=== PATIENT | female | born 1945 | race African-American/Black ===

== ENCOUNTER 2016-07-22 09:46 | Outpatient (CLI) | payer MEDICARE ==
[~2016-07-22] VITALS: Ht 167.6 cm; Wt 82.7 kg
--- NOTE | ~2016-07-22 | HEMODYNAMI ---
PATIENT:FOX CAMPA MEDICAL RECORD: [id number] : 43 LOCATION:DCarlyCAT ADMISSION DATE: 07/22/16 Generatedon:07/22/201614:25 Patient name: FOX CAMPA Patient #: [id number] SSN: : 1945 Date of study: 07/22/2016 Page: Of Hemodynamic Procedure Report Patient Data Patient Demographics Procedure consent was obtained First Name: FOX Gender: Female Last Name: KATHERYN : 1945 Middle Initial: C Age: 70 year(s) Patient #: [id number] Race: Black Additional ID: [id number] Contact details Address: [address] [place] [address] State: [place] City: [place] Zip code: [address] Past Medical History Allergies Allergen Reaction Date Comments Reported Other allergy 05/26/2014 PCN, Sulfa, Flagyl, Calan, Percodan, Stadol, Compazine, EES, Zithromax, Vantin, Cephalexin, Cefaclor, Zebeta, Valium, Medrol, Imitrex Admission Admission Data Admission Date: 07/22/2016 Admission Time: 9:46 Lab Results Lab Result Date: 07/22/2016 Lab Result Time: 0:00 Biochemistry Name Units Result Min Max BUN mg/dl 19 --(----)*- 7 18 Creatinine mg/dl 0.9 --(-*--)-- 0.6 1.3 CBC Name Units Result Min Max Hemoglobin g/dl 10.4 *-(----)-- 13.5 17.5 Procedure Procedure Types Cath Procedure Diagnostic Procedure [facility] w/Coronaries PCI Procedure Coronary Stent Initial Miscellaneous Procedures Moderate Sedation up to 30 minutes Procedure Description Procedure Date Procedure Date: 07/22/2016 Procedure Start Time: 14:08 Procedure End Time: 14:23 Procedure Staff Name Function Bentley Sun MD Performing Physician Chelly Saavedra RT Scrub Allen Baker RN Nurse Tj Pedro RT Hand Rug Cleaner Cristina Marks RT Monitor Procedure Data Cath Procedure Fluoroscopy Diagnostic fluoroscopy Total fluoroscopy Time: 3.2 time: 3.2 min min Diagnostic fluoroscopy Total fluoroscopy dose: dose: 237.81 mGy 237.81 mGy Contrast Material Contrast Material Type Amount (ml) Isovue 370 100 Entry Location Entry Primary Successful Side Size Upsize Upsize Entry Closure Chung ccessful Closure Location (Fr) 1 (Fr) 2 (Fr) Remarks Device Remarks Radial Right 5 Fr Mechanical artery Compression Estimated blood loss: 5 ml Diagnostic catheters Device Type Used For End Catheter Placement Terumo 5Fr Denton 110cm Multi-vessel catheter Angiography Procedure Complications No complications Procedure Medications Medication Administration Route Dosage Oxygen NC 2 l/min Heparin Flush Bag added to field 2 bags (1000units/500ml NS) 0.9% NaCl I.V. 100 ml/hr Benadryl I.V. 50 mg Radial Cocktail added to field 1 syringe (Verapomil 2mg/Nitro 400mcg/Heparin 1500units) Fentanyl I.V. 50 mcg Versed I.V. 1 mg Fentanyl I.V. 50 mcg Versed I.V. 1 mg Radial Cocktail added to field 1 syringe (Verapomil 2mg/Nitro 400mcg/Heparin 1500units) Heparin Bolus I.V. 4000 units Nitroglycerin IC/IA I.C. 150 mcg Hemodynamics Rest HGB: 10.4 (g/dl) Heart Rate: 79 (bpm) Pressure Samples Time Site Value (mmHg) Purpose Heart Use Rate(bpm) 14:11 LV 75/18,17 Snapshot 78 Snapshots Pre Cath Intra NCS Post Cath Vital Signs Time Heart Resp SPO2 NIBP (mmHg) Rhythm Pain Sedation Rate (ipm) (%) Status Level (bpm) 13:57:03 76 19 100 167/83(136) NSR 0 (11) 10(A) , No pain 14:01:21 70 18 97 127/62(88) NSR 0 (11) 10(A) , No pain 14:05:35 69 17 96 113/61(79) NSR 0 (11) 10(A) , No pain 14:09:49 69 16 95 109/61(77) NSR 0 (11) 10(A) , No pain 14:13:57 72 17 91 92/54(66) NSR 0 (11) 10(A) , No pain 14:18:05 75 17 94 106/56(72) NSR 0 (11) 10(A) , No pain 14:22:15 74 16 92 101/63(83) NSR 0 (11) 10(A) , No pain Medications Time Medication Route Dose Verified Delivered Reason Note s Effectiveness by by 13:56:31 Oxygen NC 2 l/min Allen Villa Per physician Samuel Baker RN RN 13:56:39 Heparin Flush added 2 bags Allen Allen used for Bag to Samuel Baker sugar cane planting equipment operator (1000units/500ml field RN NS) 13:56:55 0.9% NaCl I.V. 100 Allen Allen Per physician ml/hr Samuel Baker RN RN 13:57:03 Benadryl I.V. 50 mg Allen Villa Per physician Samuel Baker RN RN 13:57:11 Radial Cocktail added 1 Allen Allen used for (Verapomil to syringe Samuel Baker RN procedure 2mg/Nitro field RN 400mcg/Heparin 1500units) 14:04:06 Fentanyl I.V. 50 mcg Allen Allen for sedation Samuel Bkaer RN RN 14:04:13 Versed I.V. 1 mg Allen Allen for sedation Samuel Baker RN RN 14:09:44 Fentanyl I.V. 50 mcg Allen Allen for sedation Samuel Baker RN RN 14:09:48 Versed I.V. 1 mg Allen Allen for sedation Samuel Baker RN RN 14:09:52 Radial Cocktail added 1 Allen Allen used for (Verapomil to syringe Samuel Baker sugar cane planting equipment operator 2mg/Nitro field RN 400mcg/Heparin 1500units) 14:16:55 Heparin Bolus I.V. 4000 Allen Allen for units Samuel Baker RN anticoagulation RN 14:20:15 Nitroglycerin I.C. 150 mcg Allen Montanorey for IC/IA Samuel Sun MD vasodilation rail engineer Log Time Note 13:00:05 Tj Pedro RT(R) sent for patient. Start room use. 13:44:43 Diagnostic Cath Status : Elective 13:45:13 Time tracking: Regular hours 13:45:17 Plan of Care:Hemodynamics will remain stable., Cardiac rhythm will remain stable., Comfort level will be maintained., Respiratory function will remain adequate., Patient/ family verbilizes understanding of procedure., Procedure tolerated without complication., Recovers from procedure without complications.. 13:45:22 Patient received from Outpatients to [facility] Alert and oriented. Tansferred to table in Supine position. 13:45:23 Warm blankets applied, and alvina hugger turned on for patient comfort. 13:45:23 Correct patient and procedure confirmed by team. 13:45:25 Signed procedure consent form obtained from patient. 13:45:26 ECG and BP/O2 sat monitors applied to patient. 13:55:43 Vital chart was started 13:56:10 Baseline sample Acquired. 13:56:16 Rhythm: sinus rhythm 13:56:18 Full Disclosure recording started 13:56:31 Oxygen 2 l/min NC was given by Allen Baker RN; Per physician; 13:56:32 H&P Date Dictated: 07/20/2016 Within 30 days and on chart., H&P Addendum completed by physician on day of procedure. (MUST COMPLETE FOR ALL OUTPATIENTS). 13:56:33 Pre-procedure instructions explained to patient. 13:56:34 Pre-op teaching completed and patient verbalized understanding. 13:56:35 Family in waiting room. 13:56:37 Patient NPO since Midnight. 13:56:39 Heparin Flush Bag (1000units/500ml NS) 2 bags added to field was given by Allen Baker RN; used for procedure; 13:56:43 Is the patient allergic to Iodine/contrast media? No. 13:56:44 Was the patient premedicated? No 13:56:47 Is patient on blood thinner?Yes 13:56:51 ACC The patient was administered the following blood thiners within the last 24 hours: ACCPlavix 13:56:55 0.9% NaCl 100 ml/hr I.V. was given by Allen Baker RN; Per physician; 13:56:57 Patient diabetic? No. 13:56:59 Previous problem with sedation/anesthesia? No ? 13:57:02 Snore? Yes 13:57:03 Benadryl 50 mg I.V. was given by Allen Baker RN; Per physician; 13:57:04 Sleep apnea? No 13:57:05 Deviated septum? No 13:57:05 Opens mouth fully? Yes 13:57:06 Sticks out tongue? Yes 13:57:11 Radial Cocktail (Verapomil 2mg/Nitro 400mcg/Heparin 1500units) 1 syringe added to field was given by Allen Baker RN; used for procedure; 13:57:11 Airway obstruction? Yes asthma 13:57:15 Dentures? Yes in tight 13:57:18 Pre procedure: right dorsailis pedis pulse 1+ Palpable, but thready & weak; easily obliterated 13:57:20 Patient pain scale 0/10 ?. 13:57:27 IV patent on arrival in left forearm with 0.9% NaCl at [facility]. 14:01:00 Lab Result : BUN 19 mg/dl 14:01:00 Lab Result : Creatinine 0.9 mg/dl 14:01:00 Lab Result : Hemoglobin 10.4 g/dl 14:01:04 Lab results completed and on chart. 14:01:17 Right Radial & Right Groin area was prepped with chlora-prep and draped in sterile fashion 14:01:19 Alarms reviewed by R. N. 14:01:19 Sharps counted by scrub and verified by R.N. 14:02:59 Physician arrived 14:02:59 --------ALL STOP TIME OUT------ 14:02:59 Final Timeout: patient, procedure, and site verified with staff and physician. All members of the team are in agreement. 14:03:01 Right Radial & Right Groin site verified by team. 14:03:04 Physical assessment completed. ASA score P 2 - A patient with mild systemic disease as per Bentley Sun MD. 14:03:08 Sedation plan: IV Moderate Sedation Versed, Fentanyl 14:03:11 Use device set Radial Dx 14:03:12 Acist Syringe opened to sterile field. 14:03:12 Medline Cath Pack opened to sterile field. 14:03:13 Bag Decanter opened to sterile field. 14:03:13 Terumo 6Fr Slender Glidesheath opened to sterile field. 14:03:14 St Guillermo 260cm J .035 wire opened to sterile field. 14:03:14 Acist Hand Control opened to sterile field. 14:03:15 Acist Manifold opened to sterile field. 14:03:15 Tegaderm 4 x 4 opened to sterile field. 14:04:06 Fentanyl 50 mcg I.V. was given by Allen Baker RN; for sedation; 14:04:13 Versed 1 mg I.V. was given by Allen Baker RN; for sedation; 14:07:23 Zero performed for pressure channel P1 14:08:30 Procedure started. 14:08:34 Local anesthetic to right radial artery with Lidocaine 2% by Bentley Sun MD.INITIAL ACCESS ONLY 14:08:54 A 5 Fr sheath was inserted into the Right Radial artery 14:09:44 Fentanyl 50 mcg I.V. was given by Allen Baker RN; for sedation; 14:09:48 Versed 1 mg I.V. was given by Allen Baker RN; for sedation; 14:09:52 Radial Cocktail (Verapomil 2mg/Nitro 400mcg/Heparin 1500units) 1 syringe added to field was given by Allen Baker RN; used for procedure; 14:10:48 A X BODY 5Fr Denton 110cm catheter was advanced over the wire and used for Multi-vessel Angiography. 14:12:00 LV hemodynamics recorded. 14:12:01 LV gram done using AGOSTO 14:12:23 LCA angiography performed. 14:12:33 Injector settings: Ml/sec: 3, Volume: 6, 14:13:36 RCA angiography performed. 14:13:40 Injector settings: Ml/sec: 3, Volume: 6, 14:15:05 Catheter removed. 14:15:06 Proceeding to intervention. 14:15:31 [employer] BasixCompak Inflation Kit opened to sterile field. 14:15:31 Lim Whisper J 300cm 0.014 guide wire opened to sterile field. 14:16:16 Medtronic Launcher 6Fr AR 1.0 guide catheter opened to sterile field. 14:16:29 6 Fr ar 1 guide catheter was inserted over the wire 14:16:55 Heparin Bolus 4000 units I.V. was given by Allen Baker RN; for anticoagulation; 14:17:03 whisper wire advanced. 14:17:05 Wire advanced across lesion. 14:18:34 Inflation Number: 1 A W5 Networkstronic Integrity 3.0 X 12 stent was prepped and advanced across the Mid RCA. The stent was deployed at 11 SWATHI for 0:10 (min:sec). 14:19:36 Terumo TR Band Standard opened to sterile field. 14:20:15 Nitroglycerin IC/IA 150 mcg I.C. was given by Bentley Sun MD; for vasodilation; 14:20:50 Stent catheter was removed intact over wire. 14:20:51 Wire removed. 14:20:51 Guide catheter removed. 14:21:15 Sheath removed intact; hemostasis achieved with Mechanical Compression to the Right Radial artery. 14:21:17 Procedure ended.(Physican Out) 14::58 Fluoroscopy time 03.20 minutes. 14:22:08 Flurop Dose total: 237.81 14:22: Fluoroscopy dose: 237.81 mGy 14:22: Contrast amount:Isovue 370 100ml. 14:22:29 Sharps counted by scrub and verified by R.N. 14:22:37 Insertion/operative site no bleeding no hematoma. 14:22:52 Post right radial artery:stable 14:22:54 Post Procedure Pulses reassessed and unchanged 14:22:57 Post procedure rhythm: unchanged. 14:23:00 Estimated blood loss: 5 ml 14:23:07 Post procedure instruction explained to patient.Patient verbalizes understanding. 14:23:08 Patient needs reinforcement of post procedure teaching. 14:23:25 Procedure type changed to Cath procedure, Diagnostic procedure, LHC, LHC w/Coronaries, PCI procedure, Coronary Stent Initial, Miscellaneous Procedures, Moderate Sedation up to 30 minutes 14:23:26 Procedure and supply charges have been captured, reviewed, submitted and are correct. 14:23:31 Procedure Complication : No complications 14:23:33 Vital chart was stopped 14:23:33 See physician's report for complete and final results. 14:23:37 Report given to Pre/Post Procedure Room. 14:23:40 Patient transfered to Pre/Post Procedure Room with Stretcher. 14:23:41 Procedure ended. 14:23:41 Full Disclosure recording stopped 14::51 ACC-PCI Only Patient was given prescriptions, or instructed by Bentley Sun MD to start/continue the following medications upon discharge: Plavix 14:23:52 End room use (Document Last) Intervention Summary Intervention Notes Time ActionType Lesion and Equipment Action# Pressure Duration Attributes Used 14:18:34 Place stent Mid RCA Medtronic 1 11 00:10 Integrity 3.0 X 12 stent Device Usage Item Name Manufacture Quantity Catalog Hospital Part Current Minimal Lot# / Number Charge Number Stock Stock Serial# Code Acist Acist 1 19998 157676 379273 313445 20 Syringe Medical Systems Inc Medline Cardinal 1 [id number] 40034 325626 5 Cath Pack Health Bag Microtek 1 2002S 754496 23708 641053 5 [employer]. Terumo 6Fr Terumo 1 [id number] 231530 546135 175256 [address] Guillermo 1 156108 528368 012807 283821 30 260cm J .035 wire Acist Hand Acist 1 03758 807592 302712 070362 5 Control Medical Systems Inc Acist Acist 1 04393 583981 010413 407145 5 Manifold Medical Systems Inc Tegaderm 4 3M 1 1626W 674511 606415 462781 5 x 4 Terumo 5Fr Terumo 1 405023 605462 817518 846703 5 Denton 110cm catheter Merit Merit 1 [id number] 961505 537152 773093 15 BasixCompak Medical Inflation Kit Lim Lim 1 [id number] 161408 238361 110891 5 Whisper J Vascular 300cm 0.014 guide wire Medtronic Medtronic 1 [id number] 717528 00277 850552 1 Launcher 6Fr AR 1.0 guide catheter Medtronic Medtronic 1 [id number] 725534 178051 765149 8 [id number] Integrity 3.0 X 12 stent Terumo TR Terumo 1 [id number] 909539 311017 777354 40 Band Standard Signature Audit [place] Stage Time Signature Unsigned Intra-Procedure 07/22/2016 Cristina Marks 2:25:07 PM RT(R) Signatures Monitor : Cristina Marks RT Signature : Date : Time : [facility] [address] [place] [address]
[~2016-07-22 09:46] MED LIST: BAYER CHEWABLE81 MG PO; DEPAKOTE250 MG PO; DILT-CD120 MG PO; IMDUR30 MG PO; KEFLEX500 MG PO; LEVOTHROID50 MCG PO; LEXAPRO20 MG PO; METOPROLOL TAR100 MG PO; NITROSTAT0.3 MG SL; NORCO 7.5-325 PO; NORCO 7.5-3251 EACH PO; NORCO 7.5/325 T1 TA1 PO; PEPTO-BISMOL262 M1 PO; PLAVIX75 MG PO; PRILOSEC20 MG PO; SYNTHROID75 MCG PO; ULTRAM50 MG PO; VITAMIN E1000 UNIT PO; ZOCOR40 MG PO; ZYRTEC-D T1 TAB.SR . PO
[2016-07-22 11:00] VITALS: BP 148/70; Ht 167.6 cm; Wt 82.7 kg
[2016-07-22 11:40] LABS: BASOPHILS 0.2 % (0.0-2.0); EOSINOPHILS 1.8 % (0-7); HEMATOCRIT 33.9 % (36.0-48.0); HEMOGLOBIN 10.4 g/dL (12-16); IMMATURE GRANULOCYTES 0.4 % (0-5); MCH 25.4 pg (26.0-34.0); MCHC 30.7 g/dL (31.0-37.0); MCV 82.9 fL (80.0-100.0); MEAN PLATELET VOLUME 11.4 fL (7.4-10.4); MONOCYTES 10.9 % (2-11); NEUTROPHILS 44.7 % (40-80); RBC 4.09 10x6/uL (4.00-5.40); RDW 18.1 % (11.5-14.5); WBC 5.6 10x3/uL (4.8-10.8)
[2016-07-22 11:41] LABS: PLATELET COUNT 233 10x3/uL (130-400)
[2016-07-22 11:50] LABS: INR 1.04 (0.85-1.17); PROTIME 13.4 SECONDS (11.6-15.0)
[2016-07-22 11:52] LABS: ANION GAP 11.3 mmol/L (8-16); CALCIUM 8.7 mg/dL (8.5-10.1); CARBON DIOXIDE 29.7 mmol/L (21.0-32.0); CREATININE - SERUM 0.9 mg/dL (0.6-1.3)
--- NOTE | 2016-07-22 14:45 | NUR ---
TR BAND TO R/WRIST CDI NO BLEEDING NO HEMATOMA NOTED. VSS WITH CHEST PAIN DENIED. WILL MONITOR
--- NOTE | 2016-07-22 15:48 | NUR ---
1530 VOIDED VIA BEDPAN, 200CC. ALL VITALS REMAIN WNL. R WRIST TR BAND C/D/I WITH NO HEMATOMA OR BLEEDING. DAUGHTER AT BEDSIDE.
--- NOTE | 2016-07-22 18:01 | NUR ---
1630 R WRIST TR BAND C/D/I WITH NO HEMATOMA OR BLEEDING, SITTING UP EATING SANDWICH TRAY WITH DAUGHTER AT BEDSIDE.
--- NOTE | 2016-07-22 18:23 | NUR ---
2CC AIR REMOVED FROM R WRIST TR BAND. PIV REMOVED FROM LEFT AC WITH BANDAID APPLIED. UP TO BEDSIDE TO DRESS WITH ASSIST FROM DAUGHTER.
--- NOTE | 2016-07-22 18:49 | NUR ---
TR BAND REMOVED AND TEGADERM APPLIED. AMBULATED TO BATHROOM TO VOID. D/C INSTRUCTIONS DISCUSSED WITH PATIENT AND DAUGHTER. WHEELED OUT VIA WHEELCHAIR BY CASER SHOE PARTS TEAM.
--- NOTE | 2016-07-24 18:07 | NUR ---
PT'S DAUGHTER CALLED WITH QUESTIONS CONCERNING PT HAVING CLUTCHING CHEST PAIN. INITIALLY INSTRUCTED PT TO "GO TO THE ER TO BE EVALUATED". SPOKE WITH WEAVING LOOM OPERATOR WHO STATED THIS NURSE SHOULD CALL PT BACK TO [facility] TO CALL 911 AND GO TO THE CLOSEST ER FOR EVALUATION NOT TO DRIVE TO [facility] ER. PT CHART ACCESSED FOR PT PHONE NUMBER. SPOKE WITH PT'S DAUGHTER AND CLAIRIFIED TO GO TO THE CLOSEST ER PT LIVES IN [place].
--- NOTE | 2016-07-29 08:46 | OP ---
PATIENT NAME: FOX CAMPA MEDICAL RECORD: [id number] :43 LOCATION:D.CAT ADMISSION DATE: SURGEON: RENEE SALINAS MD DATE OF OPERATION: 07/22/2016 PROCEDURES: 1. PTCA stent RCA. 2. Left heart catheterization. 3. Selective coronary angiography. 4. Left ventriculogram. INDICATION: Angina and coronary artery disease. PROCEDURE IN DETAIL: After informed consent was obtained and after a detailed explanation of risks, benefits as well as alternative therapies, the patient elected to proceed with angiogram and angioplasty. The right femoral area was prepped and draped in normal sterile fashion. The right femoral artery was cannulated via modified Seldinger technique with placement of 6-Egyptian sheath. All catheters exchanged through this sheath. FINDINGS: The left ventriculogram was performed in the standard 30-degree AGOSTO view, reveals good cardiac wall motion throughout all segments. Overall ejection fraction estimated at 60%. SELECTIVE CORONARY ANGIOGRAPHY: 1. Left main showed no significant angiographic disease. 2. Left anterior descending has previously placed stents; these are widely patent with no significant restenosis. No disease elsewise throughout the LAD or its branches. 3. Left circumflex shows moderate irregularities, but no flow-limiting stenosis. 4. The right coronary has a hazy 70+ percent stenosis in the mid vessel. PTCA STENT OF THE RCA: The stent used was 3.0 x 12 mm Integrity stent. Result was 0% residual stenosis. OVERALL IMPRESSION: Successful percutaneous transluminal coronary angioplasty stent of the right coronary artery going from 70% hazy stenosis to 0% residual. TRANSINT:[id number] Voice Confirmation ID: [id number] DOCUMENT ID: [id number] RENEE SALINAS MD at 0846 CC: [id number] DICTATION DATE: 07/22/16 1424 HAND FABRIC CUTTER: 07/22/162009 [facility] CLI 07/22/16 [place] [id number]
== END 2016-07-22 18:51 | disposition home or self-care (01) ==
LOC: D.CATH 09:46
PROVIDERS: Internal Medicine Interventional Cardiology
DX: I25.119 Atherosclerotic heart disease of native coronary artery with unspecified angina pectoris (principal)

== ENCOUNTER 2017-03-23 13:37 | Observation (INO) | payer MEDICARE ==
--- NOTE | ~2017-03-23 | HEMODYNAMI ---
PATIENT:FOX CAMPA MEDICAL RECORD: [id number] : 43 LOCATION:[facility] D.2118 ADMISSION DATE: 03/23/17 Generatedon:03/23/201716:13 Patient name: FOX CAMPA Patient #: [id number] SSN: : 1945 Date of study: 03/23/2017 Page: Of Hemodynamic Procedure Report Patient Data Patient Demographics Procedure consent was obtained First Name: FOX Gender: Female Last Name: KATHERYN : 1945 [facility] Initial: C Age: 71 year(s) Patient #: [id number] Race: Black Additional ID: [id number] Contact details [address]: [address] [place] [address] State: [place] City: [place] Zip code: [address] Past Medical History Allergies Allergen Reaction Date Comments Reported Other allergy 05/26/2014 PCN, Sulfa, Flagyl, Calan, Percodan, Stadol, Compazine, EES, Zithromax, Vantin, Cephalexin, Cefaclor, Zebeta, Valium, Medrol, Imitrex Admission Admission Data Admission Date: 03/23/2017 Admission Time: 13:37 Room #: .2118 Procedure Procedure Types Cath Procedure Diagnostic Procedure [facility] w/Coronaries Miscellaneous Procedures Moderate Sedation up to 15 minutes Procedure Description Procedure Date Procedure Date: 03/23/2017 Procedure Start Time: 16:01 Procedure End Time: 16:09 Procedure Staff Name Function Bentley Sun MD Performing Physician Tj Pedro RT Scrub Torsten Alba RN Nurse Chelly Saavedra RT Monitor Procedure Data Cath Procedure Fluoroscopy Diagnostic fluoroscopy Total fluoroscopy Time: 0.9 time: 0.9 min min Diagnostic fluoroscopy Total fluoroscopy dose: 327 dose: 327 mGy mGy Contrast Material Contrast Material Type Amount (ml) Isovue 300 46 Entry Location Entry Primary Successful Side Size Upsize Upsize Entry Closure Chung ccessful Closure Location (Fr) 1 (Fr) 2 (Fr) Remarks Device Remarks Radial Right 6 Fr Manual tr artery Short Compression Estimated blood loss: 10 ml Diagnostic catheters Device Type Used For End Catheter Placement Diagnostic Terumo 5Fr Procedure [employer] 110cm catheter Procedure Complications No complications Procedure Medications Medication Administration Route Dosage Oxygen NC 2 l/min Lidocaine 2% added to field 20 Heparin Flush Bag added to field 2 bags (1000units/500ml NS) 0.9% NaCl I.V. 100 ml/hr unlisted medication I.A. Versed I.V. 0.5 mg Fentanyl I.V. 25 mcg Versed I.V. 0.5 mg Fentanyl I.V. 25 mcg Hemodynamics Rest Heart Rate: 102 (bpm) Pressure Samples Time Site Value (mmHg) Purpose Heart Use Rate(bpm) 16:05 LV 115/0,6 Snapshot 73 16:05 AO 114/62(87) Pullback 68 16:05 LV 17/2,7 Pullback 68 Gradients Valve Time Site 1 Site 2 Mean SEP/DFP Peak To Heart Use (mmHg) (sec/min) Peak Rate (mmHg) (bpm) Aortic 16:05 LV AO 0 19 0 68 17/2,7 114/62(87) Calculations Valve P-P Mean Valve Index Valve Source Name Gradient Area Flow (cm2) Aortic 0 0 0 0 Snapshots Pre Cath Intra NCS Post Cath Vital Signs Time Heart Resp SPO2 etCO2 NIBP (mmHg) Rhythm Pain Sedation Rate (ipm) (%) (mmHg) Status Level (bpm) 15:54:05 76 17 95 0 160/66(114) NSR 0 (11) 10(A) , No pain 15:58:52 73 15 97 30.9 155/60(118) NSR 0 (11) 10(A) , No pain 16:03:36 71 18 97 38.4 150/62(106) NSR 0 (11) 9(A) , No pain 16:08:15 73 15 94 35.4 118/53(78) NSR 0 (11) 9(A) , No pain 16:11:21 73 16 96 33.1 121/51(79) NSR 0 (11) 10(A) , No pain Medications Time Medication Route Dose Verified Delivered Reason Notes Effectiveness by by 15:57:24 Oxygen NC 2 l/min Bentley Sarmiento used for Corinne Alba manager heart 15:57:32 Lidocaine 2% added 20ml vial Bentley Hagan for loca l to Corinne Sun MD anesthetic field 15:57:44 Heparin Flush added 2 bags Bentley Hagan used for Bag to Corinne Sun MD procedure (1000units/500ml field NS) 15:57:56 0.9% NaCl I.V. 100 ml/hr Bentley Sarmiento Per Corinne Alba RN physician 15:59:55 radial cocktail I.A. heparin 1500 Bentley Hagan for pt units,nitroglycerin Corinne Sun MD vasodilation allergic 400 mcg to verapamil 15:59:58 Versed I.V. 0.5 mg Bentley Sarmiento for sundar terry Alba RN 16:00:06 Fentanyl I.V. 25 mcg Bentley Rojasie for sundar terry Alba RN 16:05:54 Versed I.V. 0.5 mg Bentley Rojasie for sundar terry Alba RN 16:05:59 Fentanyl I.V. 25 mcg Bentley Rojasie for sundar terry Alba RN Procedure Log Time Note 15:19:49 Procedure type changed to Cath procedure, Diagnostic procedure, LHC, LHC w/Coronaries, Miscellaneous Procedures, Moderate Sedation up to 15 minutes 15:20:31 Diagnostic Cath status Elective 15:20:35 Chelly WILLIAMSON(R) sent for patient. Start room use. 15:20:37 Time tracking: Regular hours 15:20:47 Plan of Care:Hemodynamics will remain stable., Cardiac rhythm will remain stable., Comfort level will be maintained., Respiratory function will remain adequate., Patient/ family verbilizes understanding of procedure., Procedure tolerated without complication., Recovers from procedure without complications.. 15:46:49 Patient received from PCU to CCL 1 Alert and oriented. Tansferred to table in Supine position. 15:46:52 Warm blankets applied, and alvina hugger turned on for patient comfort. 15:46:53 Correct patient and procedure confirmed by team. 15:46:55 Signed procedure consent form obtained from patient. 15:46:56 ECG and BP/O2 sat monitors applied to patient. 15:49:35 Full Disclosure recording started 15:53:10 Vital chart was started 15:53:13 Baseline sample Acquired. 15:53:19 Rhythm: sinus rhythm 15:53:35 H&P Date Dictated: 03/23/2017 Within 30 days and on chart., H&P Addendum completed by physician on day of procedure. (MUST COMPLETE FOR ALL OUTPATIENTS). 15:53:37 Pre-procedure instructions explained to patient. 15:53:39 Pre-op teaching completed and patient verbalized understanding. 15:53:43 Family in waiting room. 15:53:44 Patient NPO since Midnight. 15:53:55 Is the patient allergic to Iodine/contrast media? No. 15:53:59 Is patient on blood thinner?Yes 15:54:05 ACC The patient was administered the following blood thiners within the last 24 hours: ACCAspirin, ACCPlavix 15:55:39 Patient diabetic? No. 15:55:46 Snore? Yes 15:55:55 Airway obstruction? Yes asthma 15:56:06 Patient pain scale 0/10 ?. 15:56:13 IV patent on arrival in left forearm with 0.9% NaCl at O. 15:56:22 Lab results completed and on chart, pending. 15:56:27 Right Radial & Right Groin area was prepped with chlora-prep and draped in sterile fashion 15:56:29 Alarms reviewed by Levi Lopez 15:56:31 Physician paged 15:56:32 Physician arrived 15:56:33 --------ALL STOP TIME OUT------ 15:56:34 Final Timeout: patient, procedure, and site verified with staff and physician. All members of the team are in agreement. 15:56:36 Right Radial & Right Groin site verified by team. 15:56:41 Sedation plan: IV Moderate Sedation Versed, Fentanyl 15:57:24 Oxygen 2 l/min NC was administered by Torsten Alba RN; used for procedure; 15:57:32 Lidocaine 2% 20ml vial added to field was administered by Bentley Sun MD; for local anesthetic; 15:57:44 Heparin Flush Bag (1000units/500ml NS) 2 bags added to field was administered by Bentley Sun MD; used for procedure; 15:57:56 0.9% NaCl 100 ml/hr I.V. was administered by Torsten Alba RN; Per physician; 15:58:39 Use device set Radial Dx 15:58:40 Acist Syringe opened to sterile field. 15:58:41 Medline Cath Pack opened to sterile field. 15:58:41 Bag Decanter opened to sterile field. 15:58:42 Terumo 6Fr Slender Glidesheath opened to sterile field. 15:58:42 St Guillermo 260cm J .035 wire opened to sterile field. 15:58:42 Acist Hand Control opened to sterile field. 15:58:43 Acist Manifold opened to sterile field. 15:58:43 Tegaderm 4 x 4 opened to sterile field. 15:58:44 MBrace Wrist Support opened to sterile field. 15:59:55 radial cocktail heparin 1500 units,nitroglycerin 400 mcg I.A. was administered by Bentley Sun MD; for vasodilation; pt allergic to verapamil 15:59:58 Versed 0.5 mg I.V. was administered by Torsten Alba RN; for sedation; 16:00:06 Fentanyl 25 mcg I.V. was administered by Torsten Alba RN; for sedation; 16:01:02 Procedure started. 16:01:13 Local anesthetic to right radial artery with Lidocaine 2% by Bentley Sun MD.INITIAL ACCESS ONLY 16:03:49 A 6 Fr Short sheath was inserted into the Right Radial artery 16:04:06 Zero performed for pressure channel P1 16:04:13 Zero performed for pressure channel P1 16:04:39 A Diagnostic Terumo 5Fr Fe [employer] 110cm catheter was advanced over the wire and used for Procedure. 16:04:54 LV angiography performed. 16:05:26 EF : 55 % 16:05:29 LCA angiography performed. 16:05:54 Versed 0.5 mg I.V. was administered by Torsten Alba RN; for sedation; 16:05:59 Fentanyl 25 mcg I.V. was administered by Torsten Alba RN; for sedation; 16:06:19 RCA angiography performed. 16:06:43 Catheter removed. 16:07:25 Terumo TR Band Standard opened to sterile field. 16:07:53 Sheath removed intact; hemostasis achieved with Manual Compression to the Right Radial artery. 16:07:56 Procedure ended.(Physican Out) 16:08:08 Fluoroscopy time 00.90 minutes. 16:08:13 Fluoroscopy dose: 327 mGy 16:08:13 Flurop Dose total: 327 16:08:16 Contrast amount:Isovue 300 46ml. 16:08:18 Sharps counted by scrub and verified by R.N. 16:08:20 TR band inflated with 10cc of air. 16:08:21 Insertion/operative site no bleeding no hematoma. 16:08:30 Post right radial artery:stable 16:08:33 Post Procedure Pulses reassessed and unchanged 16:08:37 Post procedure rhythm: unchanged. 16:08:40 Estimated blood loss: 10 ml 16:08:42 Post procedure instruction explained to patient.Patient verbalizes understanding. 16:08:47 Procedure and supply charges have been captured, reviewed, submitted and are correct. 16:08:54 Procedure Complication : No complications 16:08:59 Vital chart was stopped 16:09:00 See physician's report for complete and final results. 16:09:02 Report given to [facility]. 16:09:06 Patient transfered to [facility] with Bed. 16:09:09 Procedure ended. 16:09:09 Full Disclosure recording stopped 16:09:12 End room use (Document Last) Device Usage Item Name Manufacture Quantity Catalog Hospital Part Current Minimal Lot# / Number Charge Number Stock Stock Serial# Code Acist Acist 1 [id number] 617058 233968 [id number] 20 Syringe [employer] Medline Cardinal 1 [id number] 701061 06493 657184 5 Cath Pack Health Bag Microtek 1 2001S 341490 36856 335933 5 Resale [employer] Terumo 6Fr Terumo 1 [id number] 130453 607321 367759 [address] Guillermo 1 436253 792420 679964 059401 30 260cm J .035 wire Acist Hand Acist 1 00258 956476 406742 959299 5 Control Medical [employer] Inc Acist Acist 1 21183 756691 126424 823479 5 Manifold Medical [employer] Inc Tegaderm 4 3M 1 1626W 647889 382753 742972 5 x 4 MBrace Advanced 1 140-0250-00 550180 73172 314140 5 Wrist Vascular Support Dynamics Diagnostic Terumo 1 84-0793 330678 165663 002342 5 Terumo 5Fr Fe [employer] 110cm catheter Terumo TR Terumo 1 [id number] 622063 448266 646781 40 Band Standard Signature Audit Novelty Stage Time Signature Unsigned Intra-Procedure 03/23/2017 Chelly Saavedra 4:13:49 PM RT(R) Signatures Monitor : Chelly Saavedra Signature : RT Date : Time : [id number] [place] [address]
--- NOTE | 2017-03-23 13:43 | NUR ---
NEW ADMIT FROM JOS[facility]. TRANSFRED BY EMS. OREINTED TO ROOM. CALL LIGHT IN REACH. WILL CONT. PLAN OF CARE.
[2017-03-23 14:26] VITALS: BMI 29.1
--- NOTE | 2017-03-23 15:00 | NUR ---
TO SHOE SINGER PER BED
[2017-03-23 15:47] LABS: BASOPHILS 0.1 % (0-2); EOSINOPHILS 0.1 % (0-7); HEMATOCRIT 39.2 % (36.0-48.0); HEMOGLOBIN 12.3 g/dL (12-16); IMMATURE GRANULOCYTES 0.3 % (0-5); LYMPHOCYTES 20.3 % (15-50); MCH 28.3 pg (26.0-34.0); MCHC 31.4 g/dL (31.0-37.0); MCV 90.1 fL (80.0-100.0); MEAN PLATELET VOLUME 11.4 fL (7.4-10.4); MONOCYTES 9.4 % (2-11); NEUTROPHILS 69.8 % (40-80); RBC 4.35 10x6/uL (4.00-5.40); RDW 19.5 % (11.5-14.5); WBC 9.2 10x3/uL (4.8-10.8)
[2017-03-23 15:48] LABS: PLATELET COUNT 179 10x3/uL (130-400)
[2017-03-23 15:56] LABS: ANION GAP 14.6 mmol/L (8-16); CALCIUM 8.5 mg/dL (8.5-10.1); CARBON DIOXIDE 25.9 mmol/L (21.0-32.0); POTASSIUM - SERUM 3.5 mmol/L (3.5-5.1)
[2017-03-23 16:00] VITALS: BP 121/59
--- NOTE | 2017-03-23 16:08 | HP ---
PATIENT: FOX CAMPA MEDICAL RECORD: [id number] ACCOUNT: [id number] LOCATION:[address] : 43 ADMISSION DATE: 03/23/17 HISTORY AND PHYSICAL EXAMINATION DIAGNOSES: 1. Unstable angina. 2. Coronary artery disease. 3. Hypertension. 4. Hyperlipidemia. HISTORY OF PRESENT ILLNESS: Mrs. Campa presents to [facility] with increasing anginal chest discomfort just like that of her previous angina. Last cardiac intervention was July 2016. She is currently on metoprolol, simvastatin, Plavix, aspirin and Imdur. PHYSICAL EXAMINATION: GENERAL APPEARANCE: Well-nourished, well-developed, appears stated age. Level of distress, comfortable. PSYCHIATRIC: Mental status, alert, normal affect. Orientation, oriented to time, place and person. EYES: Lids and conjunctiva, noninjected. No discharge, no pallor. ENT: Lips, teeth, gums, normal dentition. Oropharynx, no cyanosis, no pallor. NECK: Carotid arteries, bilateral normal upstroke, no bruits, no thrills. JUGULAR VEINS: No jugular venous pressure or distention. CERVICAL LYMPH NODES: Nontender, nonenlarged. THYROID: Not enlarged. Nontender. No nodules. LUNGS: Respiratory effort, unlabored. CHEST: Normal curvature. No thoracic deformity. No chest wall tenderness. Percussion, resonant. Auscultation, clear. No wheezes, no rales, no rhonchi. CARDIOVASCULAR: Precordial exam, nondisplaced. No heaves or pericardial thrills. Rate and rhythm, regular. Heart sounds, normal S1, normal S2. No S3, no gallop, no rub. Systolic murmur, not heard. Diastolic murmur, not heard. EXTREMITIES: No cyanosis, no edema. Peripheral pulses, full and equal in all extremities, except as noted. No bruits appreciated. ABDOMEN: Soft, nondistended. Normal aorta. No bruit. Nontender. No masses. Liver, nontender, no hepatomegaly. Spleen, nontender, no splenomegaly. MUSCULOSKELETAL: No joint tenderness. No joint swelling. No erythema. NEUROLOGICAL: Normal gait, normal strength, normal tone. SKIN: Warm and dry. REVIEW OF SYSTEMS: The patient reports easy bruising but reports no swollen glands. The patient reports no fever, no night sweats, no significant weight gain, no significant weight loss. No significant exercise tolerance. The patient reports no dry eyes, no irritation, no vision change. Patient reports no difficulty hearing and no ear pain. Patient reports no frequent nose bleeds or nose and sinus problems. Patient reports on arm pain on exertion. No shortness of breath while lying down. No history of heart murmur. Patient reports no cough, no wheezing or coughing up blood. Patient reports no abdominal pain, no vomiting. Normal appetite. No diarrhea and not vomiting blood. No nausea and no constipation. Patient reports no incontinence. No difficulty urinating. No hematuria. No increased frequency. Patient reports no muscle aches. No weakness, no arthralgias, no back pain. No swelling of the extremities. Patient reports no abnormal mole, no jaundice, no rashes. Reports no loss of consciousness. No weakness and no numbness. No seizures, dizziness, HISTORY AND PHYSICAL [id number] CAMPA,FOX C or headaches. The patient reports no depression, no sleep disturbance, feeling safe in a relationship and no alcohol abuse. Patient reports on fatigue. Reports no runny nose or sinus pressure. No itching, no hives, and no frequent sneezing. OVERALL IMPRESSION: Increasing episodes of chest pain in an unstable fashion, most likely she has recurrent hemodynamically significant coronary artery disease. We will proceed with coronary angiography. Further care depends upon the findings of the angiography. TRANSINT:[id number] Voice Confirmation ID: [id number] DOCUMENT ID: [id number] RENEE SALINAS MD at 1608 CC: [id number] DICTATION DATE: 03/23/17 1443 HUMANE OFFICER: 03/23/[address] [facility] [address] [place] [address]
[2017-03-23] MEDS ORDERED: NORCO 7.5/325 T1 TA1 PO (16:46)
--- NOTE | 2017-03-23 18:14 | NUR ---
FAMILY AT SIDE.
--- NOTE | 2017-03-23 19:27 | NUR ---
ASSESSMENT COMPLETE, A&O. RESPERATIONS EVEN AND NONLABORED. TR BAND NOTED TO RIGHT WRIST, REMOVED 4 CC AIR FROM BULB. NO BLEEDING NOTED, MULTIPLE FAMILY MEMBERS AT BED SIDE. INFORMED THEM SOON I CAN TAKE OFF THE TR BAND AND IF THERE ISNT ANY BLEEDING THEN PT WILL BE ABLE TO GO HOME.
--- NOTE | 2017-03-23 20:08 | NUR ---
TR BAND REMOVED FROM RIGHT WRIST, NO SWELLING OR BLEEDING NOTED. DRSG APPLIED. IV LEFT AC REMOVED TIP INTACT. COVERED WITH 2X2 AND TAPE. DC INSTRUCTIONS WENT OVER WITH PT AND FAMILY, COPY GIVEN. PTS STATES UNDERSTANDING. WILL ESCORT OUT BY W/C WHEN PT IS DRESSED AND READY.
--- NOTE | 2017-03-31 16:56 | OP ---
PATIENT NAME: FOX CMAPA MEDICAL RECORD: [id number] :43 LOCATION:D.M2 D.8 ADMISSION DATE:03/23/17 SURGEON: RENEE SALINAS MD DATE OF OPERATION: 03/23/2017 PROCEDURES: 1. Left heart catheterization. 2. Selective coronary angiography. 3. Left ventriculogram. INDICATION: Chest pain compatible with angina, coronary artery disease, previous PTCA stent. PROCEDURE IN DETAIL: After informed consent was obtained and after a detailed explanation of risks, benefits as well as alternative therapies, the patient elected to proceed with angiogram and heart catheterization. The right radial area was prepped and draped in normal sterile fashion. The right radial artery was cannulated via modified Seldinger technique with placement of 5-Hungarian sheath. All catheters exchanged through this sheath. FINDINGS: Left ventriculogram was performed in standard 30-degree AGOSTO view, reveals good cardiac wall motion throughout all segments. Overall ejection fraction estimated 60%. SELECTIVE CORONARY ANGIOGRAPHY: 1. Left main showed no significant angiographic disease. 2. Left anterior descending has previously placed stents, these are widely patent with no significant restenosis. No disease elsewise throughout the LAD or its branches. 3. Left circumflex shows mild irregularities, but no flow-limiting stenosis. 4. Right coronary has mild irregularities, but no flow-limiting stenosis. OVERALL IMPRESSION: Wide patency of all the previously placed stents. No disease elsewise. Chest pain is most likely noncardiac in etiology at this time. TRANSINT:[id number] Voice Confirmation ID: [id number] DOCUMENT ID: [id number] RENEE SALINAS MD at 1656 CC: [id number] DICTATION DATE: 03/23/17 161 GIFT WRAPPER: 03/23/172027 DIS IN 03/23/17 [facility] [address] [place] [address]
--- NOTE | 2017-03-31 16:56 | DS ---
PATIENT:FOX CAMPA :43 MEDICAL RECORD: [id number] DISCHARGE SUMMARY ADMISSION DATE: 03/23/17 DISCHARGE DATE: 03/23/17 DISCHARGE DIAGNOSES: 1. Chest pain. 2. Coronary artery disease. 3. Previous PTCA and stent. 4. Hypertension. HOSPITAL COURSE: Mrs. Campa presented with chest pain. Found to have no significant coronary disease, no significant restenosis of the previously placed stents. Most likely chest pain is noncardiac in etiology. No other cardiac workup or treatment is necessary. Follow up with [facility] as previously scheduled. TRANSINT:[id number] Voice Confirmation ID: [id number] DOCUMENT ID: [id number] RENEE SALINAS MD at 1656 CC: [id number] DICTATION DATE: 03/23/17 1611 INSOLE RASPER: 03/24/17 0046 DIS IN 03/23/17 [id number] [place] [address]
== END 2017-03-23 20:15 | disposition home or self-care (01) ==
LOC: D.M2 13:37 → OBSVTIME 13:37 → D.M2 20:15
PROVIDERS: ADMIT Internal Medicine Interventional Cardiology
DX: R07.89 Other chest pain (principal); I25.10 Atherosclerotic heart disease of native coronary artery without angina pectoris; Z95.5 Presence of coronary angioplasty implant and graft; I10 Essential (primary) hypertension; E78.5 Hyperlipidemia, unspecified

== ENCOUNTER 2017-12-09 17:29 | Inpatient (IN) | payer MEDICARE, MEDICAID ==
[~2017-12-09] VITALS: Ht 167.6 cm; Wt 91.2 kg
[2017-12-09 18:06] LABS: BASOPHILS 0.2 % (0-2); EOSINOPHILS 0.6 % (0-7); HEMATOCRIT 26.8 % (36.0-48.0); HEMOGLOBIN 7.8 g/dL (12-16); IMMATURE GRANULOCYTES 0.3 % (0-5); MCH 23.4 pg (26.0-34.0); MCHC 29.1 g/dL (31.0-37.0); MCV 80.2 fL (80.0-100.0); MEAN PLATELET VOLUME 10.8 fL (7.4-10.4); MONOCYTES 12.7 % (2-11); NEUTROPHILS 62.2 % (40-80); RBC 3.34 10x6/uL (4.00-5.40); RDW 20.4 % (11.5-14.5); WBC 8.9 10x3/uL (4.8-10.8)
[2017-12-09 18:07] LABS: PLATELET COUNT 286 10x3/uL (130-400)
[2017-12-09 18:13] LABS: APTT 28.2 SECONDS (22.8-39.4); INR 1.11 (0.85-1.17); PROTIME 13.9 SECONDS (11.6-15.0)
[2017-12-09 18:18] LABS: ALBUMIN 3.4 g/dL (3.4-5.0); ALKALINE PHOSPHATASE 68 U/L (46-116); ALT (SGPT) 20 U/L (10-68); BILIRUBIN - TOTAL 0.19 mg/dL (0.2-1.3); CALC OSMOLALITY 280 mosm/kg (275-300); CALCIUM 8.5 mg/dL (8.5-10.1); CARBON DIOXIDE 29.3 mmol/L (21.0-32.0); CHLORIDE - SERUM 105 mmol/L (98-107); GLUCOSE 123 mg/dL (74-106); POTASSIUM - SERUM 3.7 mmol/L (3.5-5.1); PROTEIN - SERUM 8.2 g/dL (6.4-8.2); SODIUM 140 mmol/L (136-145); UREA NITROGEN 15 mg/dL (7-18); eGFR NON AFRICAN AMERICAN 58 mL/min (90-120)
[2017-12-09 18:29] LABS: CKMB 2.3 U/L (0.0-3.6); CREATINE KINASE 215 UL (21-215); PRO BNP 246 pg/mL (0-125)
[2017-12-09 18:45] LABS: TROPONIN-I < 0.017 ng/mL (0.000-0.060)
[2017-12-09 19:00] VITALS: BP 137/60
[2017-12-09 20:10] VITALS: BP 156/67
[2017-12-09 21:00] VITALS: BP 150/69
[2017-12-09 21:19] LABS: APPEARANCE CLEAR (CLEAR); BILIRUBIN NEGATIVE (NEGATIVE); COLOR YELLOW (YELLOW); GLUCOSE NEGATIVE (NEGATIVE); KETONE NEGATIVE (NEGATIVE); NITRITE NEGATIVE (NEGATIVE); PROTEIN NEGATIVE (NEGATIVE); UROBILINOGEN NORMAL (NORMAL)
[2017-12-09 21:20] LABS: RED CELLS - URINE 0-5 /hpf (0-5)
[2017-12-09 21:21] LABS: BACTERIA FEW /hpf (NONE SEEN); YEAST <1+ /hpf (NONE SEEN)
[2017-12-09 22:00] VITALS: BP 162/69
[2017-12-09 23:51] VITALS: BP 132/55
[2017-12-10 01:54] LABS: BASOPHILS 0.1 % (0-2); EOSINOPHILS 0.4 % (0-7); HEMATOCRIT 25.5 % (36.0-48.0); IMMATURE GRANULOCYTES 0.5 % (0-5); MCH 23.5 pg (26.0-34.0); MCHC 29.4 g/dL (31.0-37.0); MCV 79.9 fL (80.0-100.0); MEAN PLATELET VOLUME 10.7 fL (7.4-10.4); MONOCYTES 13.8 % (2-11); NEUTROPHILS 63.2 % (40-80); PLATELET COUNT 259 10x3/uL (130-400); RBC 3.19 10x6/uL (4.00-5.40); RDW 20.3 % (11.5-14.5); WBC 8.4 10x3/uL (4.8-10.8)
[2017-12-10 02:02] LABS: HEMOGLOBIN 7.5 g/dL (12-16)
[2017-12-10 02:24] VITALS: BMI 29.9
[2017-12-10 05:45] LABS: ANION GAP 9.3 mmol/L (8-16); CALCIUM 8.3 mg/dL (8.5-10.1); CARBON DIOXIDE 28.5 mmol/L (21.0-32.0); POTASSIUM - SERUM 3.8 mmol/L (3.5-5.1)
[2017-12-10 06:14] VITALS: BP 128/47
[2017-12-10 07:40] VITALS: BP 122/49
[2017-12-10 09:02] LABS: BASOPHILS 0.3 % (0-2); EOSINOPHILS 0.6 % (0-7); HEMATOCRIT 24.8 % (36.0-48.0); IMMATURE GRANULOCYTES 0.6 % (0-5); LYMPHOCYTES 25.2 % (15-50); MCH 23.4 pg (26.0-34.0); MCHC 29.4 g/dL (31.0-37.0); MCV 79.5 fL (80.0-100.0); MEAN PLATELET VOLUME 10.2 fL (7.4-10.4); MONOCYTES 15.1 % (2-11); NEUTROPHILS 58.2 % (40-80); PLATELET COUNT 239 10x3/uL (130-400); RBC 3.12 10x6/uL (4.00-5.40); RDW 20.2 % (11.5-14.5); WBC 7.1 10x3/uL (4.8-10.8)
[2017-12-10 09:06] LABS: HEMOGLOBIN 7.3 g/dL (12-16)
[2017-12-10 11:19] VITALS: BP 127/47
[2017-12-10 13:12] LABS: BASOPHILS 0.3 % (0-2); EOSINOPHILS 0.4 % (0-7); HEMATOCRIT 25.9 % (36.0-48.0); IMMATURE GRANULOCYTES 0.3 % (0-5); LYMPHOCYTES 22.7 % (15-50); MCH 23.1 pg (26.0-34.0); MCV 79.7 fL (80.0-100.0); MEAN PLATELET VOLUME 10.5 fL (7.4-10.4); MONOCYTES 11.3 % (2-11); PLATELET COUNT 247 10x3/uL (130-400); RBC 3.25 10x6/uL (4.00-5.40); RDW 20.1 % (11.5-14.5)
[2017-12-10 13:16] LABS: HEMOGLOBIN 7.5 g/dL (12-16)
[2017-12-10 15:35] VITALS: BP 127/35
[2017-12-10 19:02] LABS: BASOPHILS 0.3 % (0-2); EOSINOPHILS 0.3 % (0-7); HEMATOCRIT 26.4 % (36.0-48.0); HEMOGLOBIN 7.7 g/dL (12-16); IMMATURE GRANULOCYTES 0.3 % (0-5); LYMPHOCYTES 22.3 % (15-50); MCH 23.3 pg (26.0-34.0); MCHC 29.2 g/dL (31.0-37.0); MEAN PLATELET VOLUME 10.9 fL (7.4-10.4); MONOCYTES 10.8 % (2-11); PLATELET COUNT 272 10x3/uL (130-400); RDW 20.6 % (11.5-14.5)
[2017-12-10 20:21] VITALS: BP 119/44
[2017-12-11 02:14] VITALS: BP 141/60
[2017-12-11 04:57] LABS: BASOPHILS 0.2 % (0-2); EOSINOPHILS 0.6 % (0-7); HEMATOCRIT 26.2 % (36.0-48.0); HEMOGLOBIN 7.8 g/dL (12-16); IMMATURE GRANULOCYTES 0.2 % (0-5); LYMPHOCYTES 30.4 % (15-50); MCH 23.7 pg (26.0-34.0); MCHC 29.8 g/dL (31.0-37.0); MCV 79.6 fL (80.0-100.0); MEAN PLATELET VOLUME 10.5 fL (7.4-10.4); MONOCYTES 14.9 % (2-11); NEUTROPHILS 53.7 % (40-80); PLATELET COUNT 264 10x3/uL (130-400); RBC 3.29 10x6/uL (4.00-5.40); RDW 20.6 % (11.5-14.5)
[2017-12-11 05:14] LABS: % SATURATION 4 % (15-55); IRON 19 ug/dl (35-150); TOTAL IRON BIND CAPACITY 429 ug/dl (260-445); UNSAT IRON BIND CAPACITY 410 ug/dl (150-375)
[2017-12-11 05:15] VITALS: BP 143/64
[2017-12-11 05:30] LABS: ANION GAP 12.8 mmol/L (8-16); CALCIUM 8.5 mg/dL (8.5-10.1); CARBON DIOXIDE 28.8 mmol/L (21.0-32.0); CREATININE - SERUM 1.1 mg/dL (0.6-1.3); POTASSIUM - SERUM 3.6 mmol/L (3.5-5.1)
[2017-12-11 08:34] VITALS: BP 127/79
[2017-12-11 12:24] VITALS: BP 141/45
[2017-12-11 12:48] VITALS: Ht 167.6 cm; Wt 91.2 kg
[2017-12-11 13:50] LABS: BASOPHILS 0.1 % (0-2); EOSINOPHILS 0.6 % (0-7); HEMATOCRIT 26.5 % (36.0-48.0); HEMOGLOBIN 7.7 g/dL (12-16); IMMATURE GRANULOCYTES 0.3 % (0-5); LYMPHOCYTES 26.1 % (15-50); MCH 23.5 pg (26.0-34.0); MCHC 29.1 g/dL (31.0-37.0); MCV 80.8 fL (80.0-100.0); MEAN PLATELET VOLUME 10.4 fL (7.4-10.4); MONOCYTES 11.9 % (2-11); PLATELET COUNT 236 10x3/uL (130-400); RBC 3.28 10x6/uL (4.00-5.40); RDW 20.5 % (11.5-14.5); WBC 6.8 10x3/uL (4.8-10.8)
[2017-12-11 16:34] VITALS: BP 91/38
[2017-12-11 20:20] LABS: BASOPHILS 0.1 % (0-2); EOSINOPHILS 0.9 % (0-7); HEMATOCRIT 23.2 % (36.0-48.0); IMMATURE GRANULOCYTES 0.1 % (0-5); LYMPHOCYTES 22.8 % (15-50); MCH 23.2 pg (26.0-34.0); MCHC 28.9 g/dL (31.0-37.0); MCV 80.3 fL (80.0-100.0); MEAN PLATELET VOLUME 10.8 fL (7.4-10.4); MONOCYTES 11.6 % (2-11); NEUTROPHILS 64.5 % (40-80); PLATELET COUNT 235 10x3/uL (130-400); RBC 2.89 10x6/uL (4.00-5.40); RDW 20.5 % (11.5-14.5); WBC 8.5 10x3/uL (4.8-10.8)
[2017-12-11 20:40] LABS: HEMOGLOBIN 6.7 g/dL (12-16)
[2017-12-12 01:47] LABS: BASOPHILS 0.1 % (0-2); EOSINOPHILS 0.9 % (0-7); HEMATOCRIT 23.3 % (36.0-48.0); IMMATURE GRANULOCYTES 0.1 % (0-5); LYMPHOCYTES 24.1 % (15-50); MCH 23.5 pg (26.0-34.0); MCHC 29.6 g/dL (31.0-37.0); MCV 79.3 fL (80.0-100.0); MEAN PLATELET VOLUME 10.5 fL (7.4-10.4); MONOCYTES 10.1 % (2-11); NEUTROPHILS 64.7 % (40-80); PLATELET COUNT 234 10x3/uL (130-400); RBC 2.94 10x6/uL (4.00-5.40); RDW 20.4 % (11.5-14.5); WBC 9.7 10x3/uL (4.8-10.8)
[2017-12-12 01:49] LABS: HEMOGLOBIN 6.9 g/dL (12-16)
[2017-12-12 06:02] VITALS: BP 101/56
[2017-12-12 07:53] LABS: BASOPHILS 0.2 % (0-2); EOSINOPHILS 1.4 % (0-7); HEMATOCRIT 23.3 % (36.0-48.0); IMMATURE GRANULOCYTES 0.2 % (0-5); LYMPHOCYTES 22.3 % (15-50); MCH 23.4 pg (26.0-34.0); MCHC 29.6 g/dL (31.0-37.0); MEAN PLATELET VOLUME 10.3 fL (7.4-10.4); MONOCYTES 11.7 % (2-11); NEUTROPHILS 64.2 % (40-80); PLATELET COUNT 230 10x3/uL (130-400); RBC 2.95 10x6/uL (4.00-5.40); RDW 20.4 % (11.5-14.5); WBC 9.7 10x3/uL (4.8-10.8)
[2017-12-12] MEDS ORDERED: FERROUS SULFAT325 MG PO (08:06)
[2017-12-12] MEDS ORDERED: CARAFATE1 G PO (08:10)
[2017-12-12] MEDS ORDERED: PROTONIX40 MG PO (08:11)
[2017-12-12 08:16] LABS: HEMOGLOBIN 6.9 g/dL (12-16)
[2017-12-12 08:47] VITALS: BP 122/52
[2017-12-12 12:38] VITALS: BP 110/44
[2017-12-12 13:10] LABS: BASOPHILS 0.1 % (0-2); EOSINOPHILS 1.3 % (0-7); HEMATOCRIT 24.5 % (36.0-48.0); IMMATURE GRANULOCYTES 0.3 % (0-5); LYMPHOCYTES 19.9 % (15-50); MCH 23.1 pg (26.0-34.0); MCV 79.8 fL (80.0-100.0); MEAN PLATELET VOLUME 10.5 fL (7.4-10.4); MONOCYTES 13.7 % (2-11); NEUTROPHILS 64.7 % (40-80); PLATELET COUNT 231 10x3/uL (130-400); RBC 3.07 10x6/uL (4.00-5.40); RDW 20.6 % (11.5-14.5)
[2017-12-12 13:28] LABS: HEMOGLOBIN 7.1 g/dL (12-16)
[2017-12-12 16:27] VITALS: BP 114/49
[2017-12-12 19:20] LABS: BASOPHILS 0.1 % (0-2); EOSINOPHILS 1.2 % (0-7); HEMATOCRIT 25.1 % (36.0-48.0); IMMATURE GRANULOCYTES 0.2 % (0-5); LYMPHOCYTES 21.4 % (15-50); MCHC 29.1 g/dL (31.0-37.0); MCV 79.2 fL (80.0-100.0); MEAN PLATELET VOLUME 10.8 fL (7.4-10.4); MONOCYTES 10.9 % (2-11); NEUTROPHILS 66.2 % (40-80); PLATELET COUNT 222 10x3/uL (130-400); RBC 3.17 10x6/uL (4.00-5.40); RDW 20.3 % (11.5-14.5); WBC 8.6 10x3/uL (4.8-10.8)
[2017-12-12 19:33] LABS: HEMOGLOBIN 7.3 g/dL (12-16)
[2017-12-12 22:07] VITALS: BP 100/37
[2017-12-13 01:57] VITALS: BP 138/54
[2017-12-13 05:30] VITALS: BP 109/48
[2017-12-13 06:31] LABS: BASOPHILS 0.1 % (0-2); EOSINOPHILS 1.3 % (0-7); HEMATOCRIT 24.3 % (36.0-48.0); IMMATURE GRANULOCYTES 0.3 % (0-5); MCH 23.1 pg (26.0-34.0); MCHC 29.2 g/dL (31.0-37.0); MCV 79.2 fL (80.0-100.0); MEAN PLATELET VOLUME 10.6 fL (7.4-10.4); NEUTROPHILS 54.3 % (40-80); PLATELET COUNT 233 10x3/uL (130-400); RBC 3.07 10x6/uL (4.00-5.40); RDW 20.5 % (11.5-14.5); WBC 7.8 10x3/uL (4.8-10.8)
[2017-12-13 06:36] LABS: HEMOGLOBIN 7.1 g/dL (12-16)
[2017-12-13 06:53] LABS: CARBON DIOXIDE 28.3 mmol/L (21.0-32.0); CREATININE - SERUM 0.9 mg/dL (0.6-1.3); POTASSIUM - SERUM 3.3 mmol/L (3.5-5.1)
[2017-12-13 07:54] VITALS: BP 118/51
== END 2017-12-13 11:58 | disposition home or self-care (01) | DRG 379 ==
LOC: D.ER 17:29 → D.EDHOLD 22:54 → D.M2 22:54
PROVIDERS: Emergency Medicine; Family Medicine; Internal Medicine Gastroenterology
PROC: 0W3P8ZZ Control Bleeding in Gastrointestinal Tract, Via Natural or Artificial Opening Endoscopic (ICD-10-PCS; 2017-12-11)
PROC: 3E0G8GC Introduction of Other Therapeutic Substance into Upper GI, Via Natural or Artificial Opening Endoscopic (ICD-10-PCS; principal; 2017-12-11 16:30)
DX: K31.811 Angiodysplasia of stomach and duodenum with bleeding (principal); I25.10 Atherosclerotic heart disease of native coronary artery without angina pectoris; I10 Essential (primary) hypertension; F32.9 Major depressive disorder, single episode, unspecified; D50.9 Iron deficiency anemia, unspecified; Z95.5 Presence of coronary angioplasty implant and graft

== ENCOUNTER 2018-03-21 06:42 | Day surgery (SDC) | payer MEDICARE, MEDICAID ==
[~2018-03-21] VITALS: Ht 167.6 cm; Wt 84.1 kg
--- NOTE | ~2018-03-21 | OP ---
PATIENT NAME: FOX CAMPA MEDICAL RECORD: [id number] :43 LOCATION:D.OPS ADMISSION DATE: SURGEON: ROOSEVELT GARCIA DO DATE OF OPERATION: 03/21/2018 PROCEDURE: Colonoscopy with polypectomy. INDICATIONS FOR PROCEDURE: Unspecified anemia and history of blood in her stool. SCOPE: [employer] video pediatric colonoscope. MEDICATIONS: Propofol 225 mg IV per anesthesia. WITHDRAWAL TIME: 18 minutes. ESTIMATED BLOOD LOSS: Minimal. COMPLICATIONS: None. FINDINGS: Informed consent was given. The patient was made comfortable with the above medication. After reaching an adequate level of sedation, the patient was placed on her left side. A digital rectal examination was performed and was normal. The endoscope was then advanced under direct visualization through the rectum to the cecum, confirmed by the presence of the appendiceal orifice and ileocecal valve. The endoscope was slowly withdrawn and mucosa was carefully examined. Prep quality was good. There were 5 polyps visualized on today's examination. They were all benign-appearing and sessile. They ranged in size from 2-5 mm in diameter. Three of these polyps were located in the ascending colon. One polyp was located in the transverse colon, and another polyp was located in the descending colon. All of these polyps were removed using hot forceps in 1 piece and completely retrieved. Other findings during the examination included diverticulosis without diverticulitis. This was mild and located in the sigmoid colon. Retroflexion was performed in the rectum with visualization of grade I internal hemorrhoids without bleeding. The endoscope was then withdrawn from the patient. The patient tolerated the procedure well and there were no complications. IMPRESSION: 1. Five polyps as described above, removed using hot forceps. 2. Mild diverticulosis of the sigmoid colon. 3. Internal hemorrhoids without bleeding. PLAN AND RECOMMENDATIONS: 1. Discharge home when recovery parameters are met. 2. Follow up biopsy specimen results. 3. High fiber diet. 4. Continue current medications. 5. Based on the patient's age and health history and multiple comorbidities, no further colonoscopies are necessary. That being said, if the patient would like another colonoscopy for screening purposes, I would recommend a repeat in 3 years time. TRANSINT:[id number] Voice Confirmation ID: [id number] DOCUMENT ID: [id number] OPERATIVE REPORT [id number] FOX CAMPA ROOSEVELT GARCIA DO at 1340 CC: [id number] DICTATION DATE: 03/21/18 0944 SPECIAL MACHINE STITCHER: 03/21/18 1211 [facility] [address] [place] [address]
[~2018-03-21 06:42] MED LIST changes: +CARAFATE1 G PO; +FERROUS SULFAT325 MG PO; +PROTONIX40 MG PO
[2018-03-21 07:12] LABS: BASOPHILS 0.1 % (0-2); EOSINOPHILS 1.7 % (0-7); HEMATOCRIT 35.6 % (36.0-48.0); HEMOGLOBIN 11.2 g/dL (12-16); IMMATURE GRANULOCYTES 0.4 % (0-5); LYMPHOCYTES 29.4 % (15-50); MCH 27.1 pg (26.0-34.0); MCHC 31.5 g/dL (31.0-37.0); MEAN PLATELET VOLUME 10.3 fL (7.4-10.4); MONOCYTES 9.2 % (2-11); NEUTROPHILS 59.2 % (40-80); PLATELET COUNT 213 10x3/uL (130-400); RBC 4.14 10x6/uL (4.00-5.40); RDW 17.9 % (11.5-14.5); WBC 7.1 10x3/uL (4.8-10.8)
[2018-03-21 07:33] LABS: ANION GAP 14.1 mmol/L (8-16); CALCIUM 8.9 mg/dL (8.5-10.1); CARBON DIOXIDE 28.9 mmol/L (21.0-32.0)
[2018-03-21 08:02] VITALS: BP 137/62; Ht 167.6 cm; Wt 84.1 kg
== END 2018-03-21 11:20 | disposition home or self-care (01) ==
LOC: D.OPS 06:42
PROVIDERS: Anesthesiology
DX: K57.31 Diverticulosis of large intestine without perforation or abscess with bleeding (principal); D64.9 Anemia, unspecified; K63.5 Polyp of colon

== ENCOUNTER → 2018-06-20 12:25 | Outpatient (CLI) | payer MEDICARE, MEDICAID ==
[2018-03-21 08:02] VITALS: BMI 29.9
[~2018-06-20 12:25] MED LIST changes: +NEXIUM20 MG
[2018-06-20 13:31] LABS: BASOPHILS 0.4 % (0-2); EOSINOPHILS 2.3 % (0-7); HEMATOCRIT 31.1 % (36.0-48.0); HEMOGLOBIN 9.1 g/dL (12-16); IMMATURE GRANULOCYTES 0.3 % (0-5); LYMPHOCYTES 29.8 % (15-50); MCHC 29.3 g/dL (31.0-37.0); MCV 85.4 fL (80.0-100.0); MONOCYTES 8.5 % (2-11); NEUTROPHILS 58.7 % (40-80); PLATELET COUNT 185 10x3/uL (130-400); RBC 3.64 10x6/uL (4.00-5.40); RDW 22.6 % (11.5-14.5)
== END | disposition home or self-care (01) ==
LOC: D.LAB 12:25 → EDSTATUS 12:28
PROVIDERS: Internal Medicine Gastroenterology
DX: D64.9 Anemia, unspecified (principal); K92.1 Melena; R10.13 Epigastric pain; R11.0 Nausea

== ENCOUNTER 2018-06-25 06:26 | Day surgery (SDC) | payer MEDICARE, MEDICAID ==
[~2018-06-25] VITALS: Ht 167.6 cm; Wt 84.1 kg
[~2018-06-25 06:26] MED LIST changes: -NEXIUM20 MG
[2018-06-25 06:58] LABS: HEMOGLOBIN 8.6 g/dL (12-16); MCH 24.9 pg (26.0-34.0); MCHC 28.7 g/dL (31.0-37.0); MCV 86.7 fL (80.0-100.0); MEAN PLATELET VOLUME 11.1 fL (7.4-10.4); RBC 3.46 10x6/uL (4.00-5.40)
[2018-06-25] MEDS ORDERED: NEXIUM20 MG (07:45)
[2018-06-25 07:55] VITALS: BP 151/61; Ht 167.6 cm; Wt 84.1 kg
--- NOTE | 2018-06-25 09:15 | NUR ---
PT REC'D TO ROOM VIA STRETCHER FROM GI LAB. AWAKE, ALERT, ORIENTED. VOISE IN TO SPEAK RE FINDINGS.
--- NOTE | 2018-06-25 09:25 | NUR ---
FULL LIQ DIET PROVIDED.
--- NOTE | 2018-06-25 09:53 | NUR ---
TOLERATED FULL LIQ DIET. IV D/C'D CATH INTACT. UP TO BR TO VOID.
--- NOTE | 2018-06-25 10:15 | NUR ---
D/C INSTRUCTIONS EXPLAINED, COPIES OF ALL GIVEN. D/C'D HOME VIA W/C TO PRIVATE CAR.
--- NOTE | 2018-06-25 10:43 | OP ---
PATIENT NAME: FOX CAMPA MEDICAL RECORD: [id number] :43 LOCATION:[facility] ADMISSION DATE: SURGEON: ROOSEVELT GARCIA DO DATE OF OPERATION: 06/25/2018 PROCEDURE: EGD with hemostasis utilizing gold probe cauterization and argon plasma coagulation. SCOPE: Olympus video gastroscope. MEDICATIONS: Propofol 100 mg IV per anesthesia and epinephrine 4 cc intraprocedurally for hemostasis. ESTIMATED BLOOD LOSS: Less than 5 mL. COMPLICATIONS: None. FINDINGS: Informed consent was given. The patient was made comfortable with the above medication. After reaching an adequate level of sedation by slow IV push, the patient was placed on her left side. The endoscope was advanced under direct visualization through the mouth to the second portion of the duodenum. The esophagus appeared normal. The endoscope was advanced beyond the GE junction into the stomach and retroflexed to view the cardia, which appeared normal. 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 A gold probe cautery was initially attempted unsuccessfully. The gold probe was removed from the endoscope and 4 cc of epinephrine was injected into a single site of approximately 2 cm for mild hemostasis to allow argon plasma coagulation. The APC unit was used utilizing 35 watt energy and the entire antral area were bleeding was located was successfully coagulated. The endoscope was then withdrawn from the patient. The patient tolerated the procedure well and there were no complications. 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 PLAN AND RECOMMENDATIONS: 1. Discharge home when recovery parameters are met. 2. Soft diet times 1 week. 3. Continue current antacid therapy consisting of PPI and Carafate. 4. Repeat EGD in 2-3 weeks with further APC until ectasias are eradicated. TRANSINT:[id number] Voice Confirmation ID: [id number] DOCUMENT ID: [id number] ROOSEVELT GARCIA DO at 1043 CC: [id number] DICTATION DATE: 06/25/1804 BRIDGE WELDER: 06/25/18 0935 [facility] [address] [place] [address]
== END 2018-06-25 11:17 | disposition home or self-care (01) ==
LOC: D.OPS 06:26
PROVIDERS: Anesthesiology
DX: K31.811 Angiodysplasia of stomach and duodenum with bleeding (principal)